=== PATIENT | female | born 1950 | race American Indian/Alaskan Native ===

== ENCOUNTER 2016-11-06 12:22 | Day surgery (SDC) | payer MEDICARE ==
[~2016-11-06 12:22] MED LIST: IOPIDINE ONE; MYDRIACYL ONE; NEOFRIN ONE
[2016-11-06] MEDS ORDERED: MYDRIACYL OS ONE (12:51)
[2016-11-06] MEDS ORDERED: NEOFRIN OS ONE (12:51)
[2016-11-06] MEDS ORDERED: IOPIDINE OS ONE (12:51)
[2016-11-06 13:34] VITALS: BP 120/64
== END 2016-11-06 13:53 | disposition home or self-care (01) ==
LOC: OR 12:22
PROVIDERS: ATTEND Specialist
DX: E11.36 Type 2 diabetes mellitus with diabetic cataract (principal); H26.492 Other secondary cataract, left eye; F17.200 Nicotine dependence, unspecified, uncomplicated
CPT/HCPCS: 82962